=== PATIENT | female | born 1945 | race Caucasian/White ===

== ENCOUNTER 2018-01-05 15:25 | Inpatient (IN) | payer OTHER, MEDICAID ==
[~2018-01-05] VITALS: Ht 162.6 cm; Wt 79.5 kg
[~2018-01-05 15:25] MED LIST: ALBUAER3 IN; ATEN-60 PO; CITA-77 PO; FLUT1SPR5; LATA0.0015 EACHEYE; LOVA20TA4 PO
[2018-01-05] MEDS ORDERED: SODIUM CHLORIDE 0.9% 1,000 ML IV ONE (15:52)
[2018-01-05 16:49] LABS: Alanine Aminotransferase 24 U/L (13-56); Alkaline Phosphatase 71 U/L (45-117); Anion Gap 10 (5-15); Aspartate Aminotransferase 10 U/L (15-37); BUN/Creatinine Ratio 14.3; Bilirubin, Total 0.2 mg/dL (0.2-1.0); Blood Urea Nitrogen 42 mg/dL (7-18); Calcium 8.3 mg/dL (8.5-10.1); Carbon Dioxide 22 mmol/L (21-32); Chloride 106 mmol/L (98-107); GFR African American 20 mL/min; GFR Non-African American 17 mL/min; Glucose 140 mg/dL (74-106); Potassium 4.1 mmol/L (3.5-5.1); Sodium 138 mmol/L (136-145); Total Protein 7.9 g/dL (6.4-8.2)
[2018-01-05 16:53] LABS: Basophils # (auto) 0.1 uL; Basophils % (auto) 0.9 % (0.0-2.0); Eosinophils # (auto) 0.2 uL; Eosinophils % (auto) 1.5 % (0.0-7.0); Hemoglobin 10.2 g/dL (12.2-16.2); Monocytes # (auto) 0.8 uL
[2018-01-05 16:56] LABS: Hematocrit 29.3 % (36.0-46.0); Lymphocytes # (auto) 2.3 uL; Lymphocytes % (auto) 21.5 % (10.0-50.0); Mean Corpuscular Hemoglobin 29.4 pg (28.0-32.0); Mean Corpuscular Hgb Conc. 34.6 g/dL (32.0-36.0); Mean Corpuscular Volume 84.9 fL (80.0-100.0); Monocytes % (auto) 7.7 % (0.0-12.0); Neutrophils # (auto) 7.2 uL; Neutrophils % (auto) 68.4 % (37.0-80.0); Platelet Count (auto) 457 10^3/uL (140-450); Red Blood Cells 3.45 10^6/uL (4.0-5.20); White Blood Cell 10.6 10^3/uL (4.4-10.8)
[2018-01-05] MEDS ORDERED: SODIUM CHLORIDE 0.9% 1,000 ML IV SCH ×2 (17:00→21:45)
[2018-01-05 17:17] LABS: INR 1.09 (0.9-1.15); Partial Thromboplastin Time 30.7 sec (22.64-33.71); Prothrombin Time 11.9 sec (9.37-12.3)
[2018-01-05] MEDS ORDERED: ACETAMINOPHEN 325 MG TAB PO PRN (21:45)
[2018-01-05] MEDS ORDERED: TEMAZEPAM 15 MG CAP PO PRN (21:45)
[2018-01-05] MEDS ORDERED: ONDANSETRON HCL 4 MG/2 ML VIAL IV PRN (21:45)
[2018-01-05] MEDS ORDERED: ALBUTEROL SULF 2.5 MG/0.5ML(0.5%) NEB SOLN NEB PRN ×2 (21:45)
[2018-01-05] MEDS ORDERED: DEXTROSE (50%) 50ML SYRG IV PRN (21:45)
[2018-01-05] MEDS ORDERED: NITROGLYCERIN 0.4 MG SL TAB SL PRN (21:45)
[2018-01-05] MEDS ORDERED: MORPHINE SULFATE 4 MG/ML SYR/VIAL IV PRN (21:45)
[2018-01-05 21:55] VITALS: BP 134/63
[2018-01-05] MEDS: ATORVASTATIN 20 MG TAB PO SCH (22:16)
[2018-01-05 23:00] VITALS: BP 118/64
[2018-01-06] VITALS (7 sets, daily range): BP systolic 112–139; BP diastolic 55–63
[2018-01-06] MEDS: ACCU-CHEK COMFORT CURVE STRIP VI SCH ×5 (00:01→23:47)
[2018-01-06] MEDS ORDERED: APIX5TAB PO (01:33)
[2018-01-06] MEDS ORDERED: TRAZ150T79 PO (01:33)
[2018-01-06] MEDS ORDERED: LISI-646 PO (01:33)
[2018-01-06] MEDS ORDERED: NIFE60TA59 PO (01:33)
[2018-01-06] MEDS ORDERED: ATEN50TA PO (01:33)
[2018-01-06] MEDS ORDERED: GLIP-116 PO (01:33)
[2018-01-06] MEDS ORDERED: AMIO200T33 PO (01:33)
[2018-01-06] MEDS ORDERED: HYDR-4072 PO (01:33)
[2018-01-06] MEDS ORDERED: CITA-73 PO (01:33)
[2018-01-06] MEDS ORDERED: SIMV10TA84 PO (01:33)
[2018-01-06] MEDS ORDERED: OMEP20TA PO (01:33)
[2018-01-06] MEDS ORDERED: LORA1TAB12 PO (01:33)
[2018-01-06] MEDS: InsuLIN REG 1unit/0.01ml Soln (100units/ml) SC SCH ×5 (06:00→23:47)
[2018-01-06] MEDS ORDERED: SODIUM CHLORIDE 0.9% 1,000 ML IV SCH (07:05)
[2018-01-06 07:12] LABS: Albumin 2.8 g/dL (3.4-5.0); Calcium 8.6 mg/dL (8.5-10.1); Potassium 4.5 mmol/L (3.5-5.1)
[2018-01-06 07:16] LABS: BUN/Creatinine Ratio 14.9
[2018-01-06 07:28] LABS: Basophils # (auto) 0.1 uL; Basophils % (auto) 0.9 % (0.0-2.0); Bilirubin, Total 0.3 mg/dL (0.2-1.0); Eosinophils # (auto) 0.2 uL; Eosinophils % (auto) 2.7 % (0.0-7.0); Hematocrit 30.9 % (36.0-46.0); Hemoglobin 10.4 g/dL (12.2-16.2); Lymphocytes # (auto) 1.9 uL; Lymphocytes % (auto) 22.4 % (10.0-50.0); Mean Corpuscular Hemoglobin 28.7 pg (28.0-32.0); Mean Corpuscular Hgb Conc. 33.7 g/dL (32.0-36.0); Mean Corpuscular Volume 85.1 fL (80.0-100.0); Monocytes # (auto) 0.7 uL; Neutrophils # (auto) 5.7 uL; Platelet Count (auto) 368 10^3/uL (140-450); Red Blood Cells 3.63 10^6/uL (4.0-5.20); Total Protein 7.8 g/dL (6.4-8.2); White Blood Cell 8.6 10^3/uL (4.4-10.8)
[2018-01-06 07:40] LABS: Urine Bacteria FEW /hpf (None Seen); Urine Blood 2+ /uL (Negative); Urine Mucus FEW (None Seen); Urine Specific Gravity 1.008 (1.001-1.035); Urine WBC 1 /hpf (0 - 5)
[2018-01-06] MEDS ORDERED: ASPirin 81 mg TAB PO SCH (10:00)
[2018-01-06] MEDS ORDERED: ENOXAPARIN SOD 30 MG/0.3 ML SYRINGE SC SCH (10:00)
[2018-01-06 12:55] LABS: Protein, Urine 18.5 mg/dL (0.0-11.9)
[2018-01-06] MEDS ORDERED: IOHEXOL 350 MG/ML 100ML IJ ONE (13:03)
[2018-01-06] MEDS ORDERED: LIDOCAINE 2%HCL (LOCAL ANESTH.) INJ 20ML MDV ONE (13:03)
[2018-01-06] MEDS ORDERED: CEFAZOLIN IV ONE (13:23)
[2018-01-06] MEDS ORDERED: VANCOMYCIN 1GM/250ML 250 ML IV ONE (13:27)
[2018-01-06] MEDS ORDERED: VANCOMYCIN HCL 1000 MG VL ONE (13:48)
[2018-01-06] MEDS ORDERED: BACITRACIN INJ 50000 UNIT VIAL ONE (13:49)
[2018-01-06] MEDS ORDERED: MIDAZOLAM HCL 1MG/1ML-2 ML VIAL ONE (13:54)
[2018-01-06] MEDS ORDERED: fentaNYL CITRATE 100 MCG/2 ML VL ONE (13:54)
[2018-01-06] MEDS ORDERED: DRON400T PO (15:00)
[2018-01-06] MEDS ORDERED: DOXYCYCLINE 100MG/250ML 100 ML IV SCH (15:15)
[2018-01-06] MEDS: DRONEDARONE HCL 400 MG TAB PO SCH ×2 (15:47→21:54)
[2018-01-06] MEDS: SODIUM CHLORIDE 0.9% 1,000 ML IV SCH (16:10)
[2018-01-06] MEDS: HYDROcodone-ACET 5/325MG TAB PO PRN (17:10)
[2018-01-06] MEDS: DOXYCYCLINE 100MG/250ML 100 ML IV SCH (20:48)
[2018-01-06] MEDS: ATORVASTATIN 20 MG TAB PO SCH (21:54)
[2018-01-06] MEDS ORDERED: DOXYCYCLINE 100 MG TAB/CAP PO SCH (22:00)
[2018-01-07] MEDS: HYDROcodone-ACET 5/325MG TAB PO PRN (01:48)
[2018-01-07] MEDS: SODIUM CHLORIDE 0.9% 1,000 ML IV SCH ×2 (02:56→16:51)
[2018-01-07 05:00] VITALS: BP 133/65
[2018-01-07] MEDS: InsuLIN REG 1unit/0.01ml Soln (100units/ml) SC SCH ×2 (06:00→11:40)
[2018-01-07] MEDS: ACCU-CHEK COMFORT CURVE STRIP VI SCH ×2 (06:28→11:40)
[2018-01-07 06:59] LABS: Basophils # (auto) 0.1 uL; Eosinophils # (auto) 0.1 uL; Eosinophils % (auto) 1.9 % (0.0-7.0); Hematocrit 30.7 % (36.0-46.0); Hemoglobin 10.3 g/dL (12.2-16.2); Lymphocytes # (auto) 1.2 uL; Lymphocytes % (auto) 16.6 % (10.0-50.0); Mean Corpuscular Hemoglobin 28.9 pg (28.0-32.0); Mean Corpuscular Hgb Conc. 33.6 g/dL (32.0-36.0); Mean Corpuscular Volume 86.1 fL (80.0-100.0); Monocytes # (auto) 0.5 uL; Monocytes % (auto) 6.7 % (0.0-12.0); Neutrophils # (auto) 5.5 uL; Neutrophils % (auto) 73.8 % (37.0-80.0); Platelet Count (auto) 341 10^3/uL (140-450); Red Blood Cells 3.57 10^6/uL (4.0-5.20); Red Cell Distribution Width 14.8 % (11.8-14.3); White Blood Cell 7.5 10^3/uL (4.4-10.8)
[2018-01-07 07:11] LABS: BUN/Creatinine Ratio 14.4; Calcium 8.4 mg/dL (8.5-10.1); Phosphorus 4.1 mg/dL (2.5-4.90); Potassium 4.3 mmol/L (3.5-5.1); Uric Acid 5.2 mg/dL (2.6-6.0)
[2018-01-07 08:36] VITALS: BP 145/69
[2018-01-07] MEDS: DOXYCYCLINE 100MG/250ML 100 ML IV SCH (09:12)
[2018-01-07] MEDS: DRONEDARONE HCL 400 MG TAB PO SCH (09:31)
[2018-01-07 13:00] VITALS: BP 152/78
[2018-01-07] MEDS ORDERED: ASP81EC PO (15:14)
[2018-01-07] MEDS ORDERED: IBUP800T24 PO (15:18)
[2018-01-07] MEDS ORDERED: DOXY-216 PO (15:18)
[2018-01-07 17:00] VITALS: BP 164/71
== END 2018-01-07 18:15 | disposition home or self-care (01) | DRG 242 ==
LOC: ER 15:25 → TELE 15:26 → TELE-WESTW 21:59
PROVIDERS: ADMIT Nurse Practitioner; ATTEND Hospitalist
PROC: 0JH606Z Insertion of Pacemaker, Dual Chamber into Chest Subcutaneous Tissue and Fascia, Open Approach (ICD-10-PCS; principal; 2018-01-07)
PROC: 02H63JZ Insertion of Pacemaker Lead into Right Atrium, Percutaneous Approach (ICD-10-PCS; 2018-01-07)
PROC: 02HK3JZ Insertion of Pacemaker Lead into Right Ventricle, Percutaneous Approach (ICD-10-PCS; 2018-01-07)
DX: I49.5 Sick sinus syndrome (principal); N17.0 Acute kidney failure with tubular necrosis; N18.4 Chronic kidney disease, stage 4 (severe); E11.22 Type 2 diabetes mellitus with diabetic chronic kidney disease; E78.5 Hyperlipidemia, unspecified; I12.9 Hypertensive chronic kidney disease with stage 1 through stage 4 chronic kidney disease, or unspecified chronic kidney disease; I25.10 Atherosclerotic heart disease of native coronary artery without angina pectoris; F32.9 Major depressive disorder, single episode, unspecified; I48.0 Paroxysmal atrial fibrillation; Z82.49 Family history of ischemic heart disease and other diseases of the circulatory system; Z83.3 Family history of diabetes mellitus; Z90.49 Acquired absence of other specified parts of digestive tract; Z88.0 Allergy status to penicillin; Z79.899 Other long term (current) drug therapy; Z79.82 Long term (current) use of aspirin
CPT/HCPCS: 33208; 36415; 71045; 76775; 80048; 80053; 81001; 82306; 82570; 82962; 83880; 84100; 84156; 84300; 84443; 84484; 84550; 85025; 85610; 85730; 86850; 86900; 86901; 87081; 93005; 93306; 96360; 96361; 99152; C1785; J0690; J1815; J2250; J3490